=== PATIENT | male | born 1960 | race Caucasian/White ===

== ENCOUNTER 2022-08-09 10:45 | Outpatient (REF) | payer OTHER, SELFPAY ==
--- NOTE | ~2022-08-09 | XR_ITS ---
EXAMINATION: XR CHEST CLINICAL INFORMATION: Chronic cough COMPARISON: None available. TECHNIQUE: 2 views of the chest were obtained. FINDINGS: No significant abnormality is noted involving the heart, lungs, mediastinum, bony thorax or soft tissues. XR/XR chest 2V IMPRESSION: Unremarkable examination.
== END 2022-08-09 10:46 | disposition home or self-care (01) ==
LOC: HO.XRAY 10:45
PROVIDERS: PCP Physician Assistant; Visit Provider Physician Assistant
DX: R05.3 Chronic cough (principal)
CPT/HCPCS: 71046

== ENCOUNTER 2022-09-13 13:17 | Outpatient (REF) | payer OTHER, SELFPAY ==
--- NOTE | 2022-09-13 14:03 | PFT_ITS ---
Forced vital capacity 87%, FEV1 94%. FEV1 over FVC ratio is 81. FEF 25/75, 130%, and MVV 82%. Post bronchodilator therapy, there is no change. Total lung capacity 91% and residual volume 80%. Diffusion capacity 88%. CONCLUSION: Normal pulmonary function tests. There is no evidence of obstructive or restrictive pulmonary disorder. MD BRANDON Henriquez/RADHA / [id number]
== END 2022-09-13 13:18 | disposition home or self-care (01) ==
LOC: HO.RESP 13:17
PROVIDERS: Absent Provider Hospitalist; PCP Physician Assistant; Visit Provider Physician Assistant
DX: R05.3 Chronic cough (principal)
CPT/HCPCS: 94060; 94727; 94729

== ENCOUNTER → 2022-09-13 14:03 | Outpatient (BNV) | payer OTHER, SELFPAY | PROVIDERS: Absent Provider Hospitalist; PCP Physician Assistant; Visit Provider Internal Medicine | DX: R05.3 Chronic cough (principal) | CPT/HCPCS: 94060; 94727; 94729 ==

== ENCOUNTER 2023-02-14 14:54 | Outpatient (AMB) | payer OTHER, SELFPAY ==
--- NOTE | 2023-02-14 14:56 | MHC.OFFVIS ---
Intake Vital Signs 02/14/23 14:57 Height 6 ft Weight 246 lb 14.684 oz BMI 33.5 BP 136/82 Blood Pressure Location Rt brachial Position Sitting Pulse 90 Pulse Source Doppler Pulse Oximetry (%) 94 Oxygen Delivery Method Room Air Intake Visit Reasons: Cough Allergies No Known Allergies Allergy (Verified 02/14/23 14:59) HPI HPI Comments History of Present Illness Details The patient is here for pulmonary evaluation. The patient is a 62-year-old gentleman presenting with worsening cough. The patient has had a cough now for more than a year. At times the cough is productive in nature. With yellowish phlegm. Moderate severity. Has been clearing his throat a lot. Sometimes very forcefully. The patient also complains of nasal congestion. He did undergo pulmonary function studies which I personally reviewed without any significant obstructive nor restrictive ventilatory defects. He had a chest x-ray with out any disease. 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 He does have a radiation dosimeter, but is never been elevated. Otherwise he has been exposed to other pesticides and agricultural type of chemicals, But not directly. The patient has never had any allergy testing. He may have some mold in the home. They do run out the humidifier. In addition, the patient does have symptoms of daytime drowsiness. He does have an elevated Hurst score of 10/24. The patient was being evaluated for sleep apnea just prior to the pandemic and then after the pandemic He did not have any further follow-up. He never started CPAP. Based on his ongoing symptoms will go ahead and request a sleep study. When he did present to the office it was noted that his pulse ox was lower than normal approximately 92-93%. Therefore in the office we did taken for a brief walking oximetry and the patient did decrease down to 92%. No clear explanation for the underlying desaturation, but, could be related to untreated sleep apnea and the possibility of pulmonary vascular disease. I did review his chest x-ray indeed did have some pronunciation of the pulmonary vessels. Therefore, will go ahead and request a sleep study and he may ultimately need an echocardiogram. [facility] Medical History (Updated 02/15/23 @ 19:06 by Jewel Lou MD) Chronic allergic rhinitis Asthma Allergies Personal history of nicotine dependence Obese Erectile dysfunction Surgical History No pertinent past surgical history Family History (Updated 08/06/22 @ 13:29 by Alejandro Parks PA-C) Brother Pulmonary fibrosis Sister Pulmonary fibrosis Social History Housing: House Alcohol intake: current Patient Tobacco Use Status: Former Tobacco user Quit Date: 2013 Tobacco use type: Cigarette e-Cigarette/Vaping Use: Never Used Second Hand Smoke Exposure: No service: No Current occupational status: employed Current occupation: [employer] Cognitive needs: No Hearing needs: No Vision needs: Yes (glasses) Review of Systems Const Reports daytime sleepiness and Reports snoring ENT Reports nasal congestion Card Denies chest pain Resp Reports chest congestion, Reports cough and Reports snoring GI Denies abdominal pain Musc Reports no additional complaints Skin/Breast Denies rash Neuro Reports no additional complaints Abdulkadir/Lymph Denies lymphadenopathy Aller/Immun Reports seasonal rhinorrhea Physical Exam Vital Signs: Last Vital Signs Pulse 90 02/14/23 14:57 BP 136/82 02/14/23 14:57 Pulse Ox 94 02/14/23 14:57 Oxygen Delivery Method Room Air 02/14/23 14:57 BMI result Body Mass Index 33.5 Const General: comfortable HEENT Throat: Yes posterior oropharynx abnormal, Yes postnasal drainage and Yes cobblestoning Neck Neck: Yes supple Chest Chest palpation & inspection: normal inspection of the chest Resp Effort & Inspection: normal respiratory effort and prolonged expiratory phase Auscultation: wheezes Cardio Rate: regular rate Rhythm: regular rhythm Heart sounds: S1 normal heart sound present and S2 normal heart sound present GI Palpation (GI): Soft to palpation Skin General skin exam: no rashes or lesions noted Extrem General: Yes no clubbing, cyanosis or edema Assessment & Plan Assessment & Plan (1) Chronic cough: Code(s): R05.3 - Chronic cough (2) Allergies: Code(s): T78.40XA - Allergy, unspecified, initial encounter Qualifiers: Encounter type: initial encounter Qualified Code(s): T78.40XA - Allergy, unspecified, initial encounter (3) Chronic allergic rhinitis: Code(s): J30.9 - Allergic rhinitis, unspecified (4) Asthma: Code(s): J45.909 - Unspecified asthma, uncomplicated Qualifiers: Asthma severity: moderate Asthma persistence: persistent Asthma complication type: uncomplicated Qualified Code(s): J45.40 - Moderate persistent asthma, uncomplicated (5) SUNIL (obstructive sleep apnea): Code(s): G47.33 - Obstructive sleep apnea (adult) (pediatric) Plan start Doxycycline x 10 days start Symbicort start Fluticasone nasal spray sinus rinse at night bloodwork/allergy testing Home PSG F/U 2-3 months Orders: Orders Venous Blood Gas 02/14/23 J30.9 - Allergic rhinitis, unspecified, J45.909 - Unspecified asthma, uncomplicated, R05.3 - Chronic cough, T78.40XA - Allergy, unspecified, initial encounter Rast Allergen 02/14/23 J30.9 - Allergic rhinitis, unspecified, J45.909 - Unspecified asthma, uncomplicated, R05.3 - Chronic cough, T78.40XA - Allergy, unspecified, initial encounter Complete Blood Count Auto Diff 02/14/23 J30.9 - Allergic rhinitis, unspecified, J45.909 - Unspecified asthma, uncomplicated, R05.3 - Chronic cough, T78.40XA - Allergy, unspecified, initial encounter Basic Metabolic Panel 02/14/23 J30.9 - Allergic rhinitis, unspecified, J45.909 - Unspecified asthma, uncomplicated, R05.3 - Chronic cough, T78.40XA - Allergy, unspecified, initial encounter Hypersensitive Pneumonitis Prf 02/14/23 J30.9 - Allergic rhinitis, unspecified, J45.909 - Unspecified asthma, uncomplicated, R05.3 - Chronic cough, R91.8 - Other nonspecific abnormal finding of lung field, T78.40XA - Allergy, unspecified, initial encounter RT home sleep study 02/14/23 G47.33 - Obstructive sleep apnea (adult) (pediatric) Medications: New fluticasone propionate 50 mcg/actuation 2 sprays intranasal DAILY 30 days 15.8 mL 11RF J31.0 - Chronic rhinitis budesonide-formoterol 160-4.5 mcg/actuation (Symbicort) 2 puffs inhalation BID 30 days 10.2 grams 11RF J44.89 - Other specified chronic obstructive pulmonary disease doxycycline hyclate 100 mg PO BID 10 days 20 caps 0RF Coding Level of Care Code New Pt Level 4 (81559) Diagnoses Chronic cough R05.3 Allergy, initial encounter T78.40XA Encounter type: initial encounter Chronic allergic rhinitis J30.9 Moderate persistent asthma without complication J45.40 Asthma severity: moderate Asthma persistence: persistent Asthma complication type: uncomplicated SUNIL (obstructive sleep apnea) G47.33 Time Spent (min) 40
[2023-02-14 14:57] VITALS: BP 136/82; PULSE 90; O2SAT 94; BMI 33.5
== END 2023-02-14 15:38 | disposition home or self-care (01) ==
PROVIDERS: PCP Physician Assistant; Visit Provider Hospitalist
DX: R05.3 Chronic cough (principal); T78.40XA Allergy, unspecified, initial encounter; J30.9 Allergic rhinitis, unspecified; J45.40 Moderate persistent asthma, uncomplicated; G47.33 Obstructive sleep apnea (adult) (pediatric)
CPT/HCPCS: 99204

== ENCOUNTER 2023-02-14 14:54 | Outpatient (REF) | payer OTHER, SELFPAY ==
[2023-02-14 15:46] LABS: MANUAL DIFF FLAG NO
[2023-02-14 15:48] LABS: Basophils Absolute Auto 0.1 X10*3/uL (0.0-0.2); Basophils Percent Auto 0.8 % (0-2); Eosinophils Absolute Auto 0.4 X10*3/uL (0.0-0.4); Eosinophils Percent Auto 5.2 % (0-4); Hematocrit 46.7 % (42.0-52.0); Hemoglobin 16.1 g/dl (14.0-18.0); Imm Gran Abs Auto 0.02 X10*3/uL (0.00-0.03); Imm Gran Pct Auto 0.3 % (0.0-0.4); Lymphocytes Absolute Auto 2.4 X10*3/uL (1.2-4.9); Lymphocytes Percent Auto 31.3 % (20-40); Mean Corpuscular HGB Conc 34.5 g/dl (31.0-36.0); Mean Corpuscular Volume 87.1 fL (80.0-98.0); Mean Platelet Volume 8.9 fL (9.4-12.4); Monocytes Absolute Auto 0.6 X10*3/uL (0.1-1.2); Monocytes Percent Auto 7.3 % (2-11); Neutrophils Absolute Auto 4.2 x10*3/uL (2.0-8.3); Neutrophils Percent Auto 55.1 % (45-73); Platelet Count 252 X10*3/uL (160-400); Red Blood Count 5.36 X10*6/uL (4.60-5.80); Red Cell Distribution Width 12.7 % (11.0-16.0); White Blood Count 7.6 X10*3/uL (4.8-10.8)
[2023-02-14 15:57] LABS: VBG HCO3 21 mmol/L (22-26); VBG pCO2 28 mmHg; VBG pH 7.47 (7.32-7.43); VBG pO2 77 mmHg; Venous Blood Gas Refer to POC result
[2023-02-14 16:08] LABS: Anion Gap 13 (12-20); Blood Urea Nitrogen 22 mg/dL (9-16); Calcium 9.6 mg/dL (8.4-10.2); Carbon Dioxide 22 mmol/L (22-29); Chloride 114 mmol/L (96-108); Estimated Glomerular Filt Rate > 60; Glucose Random 108 mg/dL (60-115); Potassium 4.1 mmol/L (3.3-5.1); Sodium 145 mmol/L (135-145)
[2023-02-20 14:34] LABS: Asperg fumigatus Precip Abs NEGATIVE (NEGATIVE); Micropoly faeni Abs NEGATIVE (NEGATIVE); Pigeon serum Abs NEGATIVE (NEGATIVE); Saccharo pora viridis Abs NEGATIVE (NEGATIVE); Thermo candidus Abs NEGATIVE (NEGATIVE); Thermoa vulgaris #1 NEGATIVE (NEGATIVE)
== END 2023-02-14 14:55 | disposition home or self-care (01) ==
LOC: HO.LAB 14:54
PROVIDERS: PCP Physician Assistant; Visit Provider Hospitalist
DX: R05.3 Chronic cough (principal); T78.40XA Allergy, unspecified, initial encounter; J45.909 Unspecified asthma, uncomplicated; R91.8 Other nonspecific abnormal finding of lung field
CPT/HCPCS: 36415; 80048; 82803; 85025; 86331; 86606; 86609

== ENCOUNTER 2024-08-19 09:42 | Outpatient (AMB) | payer BC, SELFPAY ==
--- NOTE | 2024-08-19 09:46 | A.OFFPC_ITS ---
Vital Signs 08/19/24 09:52 Height 6 ft Weight 240 lb 6 oz BMI 32.6 BP 136/100 H Blood Pressure Location Lt brachial Position Sitting Pulse 62 Pulse Source Pulse Oximeter Temp 97.3 F Temp Source Temporal Artery Scan Pulse Oximetry (%) 97 Oxygen Delivery Method Room Air Intake Visit Reasons: pe Button Inspector Required: No Information Interpreted: non-clinical & clinical Window Cleaner: Not Required per policy Accompanied by: Spouse Allergies No Known Allergies Allergy (Verified 08/19/24 10:09) Medication List - Last Reconciled 08/19/24 by Alejandro Parks PA-C budesonide-formoterol 160-4.5 mcg/actuation (Symbicort) 2 puffs inhalation BID 30 days fluticasone propionate 50 mcg/actuation 2 sprays intranasal DAILY 30 days sildenafil (Viagra) 100 mg PO DAILY PRN 10 days Tobacco use date assessed: 08/19/24 Dental Screening Dental Screen Date: 08/19/24 Did you have a dental visit in the last 12 months?: Yes Did you have a dental problem in the last 6 months where you did not have access to dental care?: No Was dental information given to patient?: Patient has dentist HPI pe HPI Details Patient is a 63-year-old male here today for annual physical.?? Patient has a past medical history significant for former smoker, erectile dysfunction, obesity, elevated blood pressure readings. Asthma: And patient was followed by [facility] was started on Symbicort for his asthma type symptoms. He feels his cough and chest congestion has only been minimal. Though would like to have his maintenance inhaler on hand in case him exacerbation. Of note does have a family history of pulmonary fibrosis .. elevated blood pressure : Blood pressure today in office elevated. Patient would like to monitor blood pressure at home before starting blood pressure medication .. Class 1 Obesity: Has lost a few lb since last office visit. He still is concerned about his weight related issues particularly is knee pain. He is interested in starting a GLP 1 to help him lose weight. Of note he does report being evaluated for obstructive sleep apnea many years ago in told he had mild obstructive sleep apnea. ..Labs reviewed with patient and noted a slightly elevated fasting blood sugar at 102. Colonoscopy: Cologuard done 2021 normal his repeat 3 years, needs repeat Vaccines:UTD with FLu Vac and Tdap ,? shingles and COVID vaccines, need up to date PCV PFSH Medical History Chronic allergic rhinitis Asthma Allergies Personal history of nicotine dependence Obese Erectile dysfunction Surgical History No pertinent past surgical history Family History Brother Pulmonary fibrosis Sister Pulmonary fibrosis Social History (Updated 08/19/24 @ 10:20 by Alejandro Parks PA-C) Housing: House Alcohol intake: current Alcohol intake frequency: holidays/special occasions only Alcohol type: beer Patient Tobacco Use Status: Former Tobacco user Tobacco use type: Cigarette e-Cigarette/Vaping Use: Never Used Second Hand Smoke Exposure: No service: No Current occupational status: employed 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 1. Little interest or pleasure in doing things: not at all 2. Feeling down, depressed, or hopeless: not at all 3. Trouble falling or staying asleep, or sleeping too much: not at all 4. Feeling tired or having little energy: not at all 5. Poor appetite or overeating: not at all 6. Feeling bad about yourself - or that you are a failure or have let yourself or your family down: not at all 7. Trouble concentrating on things, such as reading the newspaper or watching television: not at all 8. Moving or speaking so slowly that other people could have noticed. Or the opposite - being so fidgety or restless that you have been moving around a lot more than usual: not at all 9. Thoughts that you would be better off or of hurting yourself in some way: not at all Total score: 0 Depression Screening Interpretation: Negative Depression Screening Done: Yes 58624 - PHQ-9 Billing: Yes Source: Developed by Drs. Yossi Anderson, Jessica Jade, Norman Moreno and colleagues, with an educational alhaji from [employer]. Thrive Questionnaire Date Thrive assessed: 08/19/24 I am a: Patient What is your living situation today?: I have a steady place to live Within the past 12 months, did the food you bought not last and you didn't have the money to get more?: Never true Within the past 12 months, did you worry whether your food would run out before you got money to buy more?: Never true Do you have trouble paying for medicines?: No Do you have trouble getting transportation to medical appointments?: No Do you have trouble paying your heating and electricity bill?: No Do you have trouble taking care of your child, family member or friend?: No Do you have trouble with day-to-day activities such as bathing, preparing meals, shopping, managing finances, etc.?: No Are you currently unemployed and looking for a job?: No Are you interested in more education?: No Please select the resources that you would like help with: None Currently or been in a relationship where the following occur: No concerns reported THRIVE Score: 0 AUDIT C Alcohol Use Questionnaire (AUDIT-C) 1. How often do you have a drink containing alcohol?: Never 3. How often do you have six or more drinks on one occasion?: Never Total Score: 0 LYNN-7 AMB Questionnaire LYNN-7 Date LYNN - 7 assessed: 08/19/24 Feeling nervous, anxious, or on edge: 0 = Not at all Not being able to stop or control worryin = Not at all Worrying too much about different things: 0 = Not at all Trouble relaxin = Not at all Being so restless that it is hard to sit still: 0 = Not at all Becoming easily annoyed or irritable: 0 = Not at all Feeling afraid as if something awful might happen: 0 = Not at all Total LYNN-7 score (0-4 normal; 5-9 mild; 10-14 moderate; 15-21 severe): 0 Source: Developed by Drs. Yossi Anderson, Jessica Jade, Norman Moreno and colleagues, with an educational alhaji from [employer] LYNN-7 Assessment Billing LYNN-7 Assessment Tool: LYNN-7 Assessment 23954 Review of Systems Const Denies body aches, Denies chills, Denies excessive sweating, Denies fatigue, Denies fever(s) and Denies headache(s) Eyes Denies blurry vision ENT Denies dysphagia, Denies vertigo, Denies dizziness, Denies headache(s), Denies hearing loss and Denies tinnitus Card Denies chest pain, Denies chest pain with activity, Denies syncope, Denies irregular heart rhythm and Denies dyspnea Resp Denies chest congestion, Denies cough, Denies hemoptysis, Denies dyspnea and Denies wheezing GI Denies abdominal pain, Denies melena, Denies hematochezia, Denies coffee ground emesis, Denies dysphagia, Denies diarrhea, Denies nausea and Denies vomiting Denies difficulty urinating, Denies dysuria, Denies urinary frequency, Denies urinary hesitancy and Denies urinary urgency Musc Denies arthralgias, Denies limited range of motion, Denies muscle cramps and Denies muscle weakness Skin/Breast Denies rash and Denies skin ulcer Neuro Denies Abnormal speech present, Denies confusion, Denies vertigo, Denies dizziness, Denies syncope, Denies headache(s), Denies memory loss and Denies seizure-like activity Psych Denies anxiety, Denies confusion, Denies depression, Denies memory loss, Denies panic attacks and Denies paranoia Endo Denies excessive sweating, Denies fatigue, Denies flushing, Denies polydipsia and Denies polyuria Aller/Immun Denies wheezing Physical exam (Primary Care) Vital Signs: Last Vital Signs Temp 97.3 F 08/19/24 09:52 Pulse 62 08/19/24 09:52 BP 136/100 H 08/19/24 09:52 Pulse Ox 97 08/19/24 09:52 Oxygen Delivery Method Room Air 08/19/24 09:52 BMI result Body Mass Index 32.6 Tobacco/Smoking Status: Tobacco use Status Tobacco use date assessed 08/19/24 08/19/24 09:47 Patient Tobacco Use Status Former Tobacco user 08/19/24 10:20 Tobacco use type Cigarette 08/19/24 10:20 e-Cigarette/Vaping Use Never Used 08/19/24 10:20 PHQ-9: PHQ-9 Score PHQ-9: Total score 0 08/19/24 10:11 Depression Screening Interpretation: Negative Thrive Assessment: Date of Thrive Assessment Date Thrive assessed 08/19/24 08/19/24 09:47 Currently or been in a relationship where the following occur: No concerns reported Const General: cooperative, comfortable, no acute distress, alert and awake; No confusion Orientation/consciousness: oriented to person, oriented to place, patient oriented x3 and No confusion HENMT Head: Yes normocephalic Ears: external ears normal and TM's normal bilaterally Face and sinus: No sinus tenderness Mouth: Normal oral and palatal mucosa present and tongue normal Teeth and gingiva: dentition normal and gingiva normal Throat: Yes posterior oropharynx normal, Yes tonsils normal and Yes uvula midline Eyes Conjunctivae: conjunctivae normal Sclerae: sclerae normal Pupils: Equal, round and reactive pupils present EOM: EOMs intact bilaterally Direct Ophthalmoscopy: No no photophobia Neck Neck: Yes no lymphadenopathy, No tender and Yes no JVD Thyroid: Thyroid normal Carotids: no bruits Chest Chest palpation & inspection: no tenderness Resp Effort & Inspection: normal respiratory effort, no audible wheezes, not labored and no stridor Auscultation: no crackles, no rales, no rhonchi and no wheezes Cardio Jugular venous distension: no JVD Rate: regular rate, not bradycardic and not tachycardic Rhythm: regular rhythm Bruits: no carotid bruits Peripheral pulses: Peripheral pulses 2+ throughout GI Inspection: Yes normal to inspection, No abdominal wall ecchymosis and No visible herniation Palpation (GI): Soft to palpation, nontender, no guarding, not rigid and No hepatosplenomegaly present Auscultation: normoactive bowel sounds General: Yes no CVA tenderness Back/Spine/Pelvis Back: no CVA tenderness and No back tenderness Cervical Spine: cervical ROM normal Thoracic/Lumbar Spine: thoracic and lumbar spine normal to inspection, straight leg raise negative bilaterally, No thoraco-lumbar ROM limited and No lumbar spinal tenderness Skin Lesions: no lesions Rashes: no rashes Wounds: no wounds Neuro General: oriented to person, oriented to place, patient oriented x3, CN's II-XI intact bilaterally and No confusion Cranial nerves: Yes Equal, round and reactive pupils present and Yes Normal accommodation reflex present Cognition (Neuro): normal cognition Speech: No Abnormal speech present Gait exam (Neuro): Normal gait present Motor exam (neuro): 5/5 motor strength present throughout Extrem Right upper extremity: full ROM; no cyanosis Left upper extremity: full ROM; no cyanosis Right lower extremity: no edema Left lower extremity: no edema Psych Appearance: grossly normal Mental Status: mental status grossly normal Affect: normal affect Attitude: cooperative Thought process: Normal thought process present Coding Level of Care Code Est Pt Prev Care 40-64y(65126) Diagnoses Annual physical exam Z00.00 Moderate persistent asthma without complication J45.40 Asthma complication type: uncomplicated Asthma persistence: persistent Asthma severity: moderate Impaired glucose metabolism R73.09 Class 1 obesity E66.811 Additional Codes LYNN-7 Assessment Billing - LYNN-7 Assessment Tool: LYNN-7 Assessment 82629 ([id number]) PHQ-9 - 82813 - PHQ-9 Billing: Yes ([id number]) Assessment & Plan Assessment & Plan (1) Annual physical exam: Code(s): Z00.00 - Encounter for general adult medical examination without abnormal findings Category: Medical Plan: As per HPI (2) Asthma: Code(s): J45.909 - Unspecified asthma, uncomplicated Category: Medical Qualifiers: Asthma complication type: uncomplicated Asthma persistence: persistent Asthma severity: moderate Qualified Code(s): J45.40 - Moderate persistent asthma, uncomplicated Plan: He denies any nighttime awakenings with asthma symptoms or recent asthma exacerbations. From time to time does get a mild congestive cough though this is few and far between.. 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 Does have a family his tory of pulmonary fibrosis. (3) Impaired glucose metabolism: Code(s): R73.09 - Other abnormal glucose Category: Medical Plan: Patient has a history of slight elevation in his fasting blood sugar. Will check his fasting blood sugar again along with A1c to evaluate for diabetes. (4) Class 1 obesity: Code(s): E66.811 - Obesity, class 1 Category: Medical Plan: Patient does understand his BMI is over 30 will work on being more physically active and adapting to better eating habits to reduce his weight. He is interested in a GLP 1 to help him reduce his weight. Of note also does have mild obstructive sleep apnea that was diagnosed several years ago which may benefit from a GLP 1 as well. Will have patient back in 8 weeks to evaluate his weight to see if he is getting benefit from the GLP 1. Orders: Orders 2 Complete Blood Count no Diff Today R73.09 - Other abnormal glucose Hemoglobin A1c Today R73.09 - Other abnormal glucose Lipid Panel Today R73.09 - Other abnormal glucose Comprehensive [place]. Panel Fast Today R73.09 - Other abnormal glucose Prostate Specific Antigen Scr Today N52.9 - Male erectile dysfunction, unspecified, Z12.5 - Encounter for screening for malignant neoplasm of prostate Medications: New tirzepatide (weight loss) (Zepbound) for 4 weeks 2.5 mg (0.5 mL) subcut QWEEK 2 mL 0RF 4 weeks E66.811 - Obesity, class 1, G47.33 - Obstructive sleep apnea (adult) (pediatric) Refilled sildenafil (Viagra) administer 30 minutes to 4 hours before activity 100 mg PO DAILY PRN 10 tabs 1RF sexual activity 10 days N52.9 - Male erectile dysfunction, unspecified budesonide-formoterol 160-4.5 mcg/actuation (Symbicort) 2 puffs inhalation BID 10.2 grams 11RF 30 days J44.89 - Other specified chronic obstructive pulmonary disease fluticasone propionate 50 mcg/actuation 2 sprays intranasal DAILY 15.8 mL 1RF 30 days J31.0 - Chronic rhinitis
[2024-08-19 09:52] VITALS: BP 136/100; PULSE 62; TEMP 36.3; O2SAT 97; BMI 32.6
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
== END 2024-08-19 10:40 | disposition home or self-care (01) ==
LOC: HO.HMCH 09:43
PROVIDERS: PCP Physician Assistant; Visit Provider Physician Assistant
DX: Z00.00 Encounter for general adult medical examination without abnormal findings (principal); J45.40 Moderate persistent asthma, uncomplicated; E66.811 Obesity, class 1; Z68.32 Body mass index [BMI] 32.0-32.9, adult; R73.09 Other abnormal glucose

== ENCOUNTER → 2024-08-19 09:42 | Outpatient (BNVA) | payer BC, SELFPAY | PROVIDERS: PCP Physician Assistant; Visit Provider Physician Assistant | DX: Z00.00 Encounter for general adult medical examination without abnormal findings (principal); N52.9 Male erectile dysfunction, unspecified; R03.0 Elevated blood-pressure reading, without diagnosis of hypertension; E66.811 Obesity, class 1; J45.40 Moderate persistent asthma, uncomplicated; R73.09 Other abnormal glucose; G47.33 Obstructive sleep apnea (adult) (pediatric); Z68.32 Body mass index [BMI] 32.0-32.9, adult; Z79.899 Other long term (current) drug therapy | CPT/HCPCS: 96127 ==

== ENCOUNTER 2024-11-16 13:00 | Outpatient (AMB) | payer BC, SELFPAY ==
--- NOTE | 2024-11-16 13:03 | A.OFFVIS_ITS ---
Vital Signs 11/16/24 13:04 Height 6 ft Weight 235 lb 14.314 oz BMI 32.0 BP 118/76 Blood Pressure Location Lt brachial Position Sitting Pulse 85 Pulse Source Pulse Oximeter Pulse Oximetry (%) 95 Oxygen Delivery Method Room Air Intake Visit Reasons: Asthma Temper Mill Roller Required: No Accompanied by: Spouse Allergies No Known Allergies Allergy (Verified 11/16/24 13:07) HPI Comments Details: The patient is a 64-year-old gentleman presenting with worsening cough. The patient has had a cough now for more than a year. At times the cough is productive in nature. With yellowish phlegm. Moderate severity. Has been clearing his throat a lot. Sometimes very forcefully. The patient also complains of nasal congestion. He did undergo pulmonary function studies which I personally reviewed without any significant obstructive nor restrictive ventilatory defects. He had a chest x-ray with out any disease. 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 He does have a radiation dosimeter, but is never been elevated. Otherwise he has been exposed to other pesticides and agricultural type of chemicals, But not directly. The patient has never had any allergy testing. He may have some mold in the home. They do run out the humidifier. In addition, the patient does have symptoms of daytime drowsiness. He does have an elevated Chauncey score of 10/24. The patient was being evaluated for sleep apnea just prior to the pandemic and then after the p andemic He did not have any further follow-up. He never started CPAP. Based on his ongoing symptoms will go ahead and request a sleep study. When he did present to the office it was noted that his pulse ox was lower than normal approximately 92-93%. Therefore in the office we did taken for a brief walking oximetry and the patient did decrease down to 92%. No clear explanation for the underlying desaturation, but, could be related to untreated sleep apnea and the possibility of pulmonary vascular disease. I did review his chest x-ray indeed did have some pronunciation of the pulmonary vessels. Therefore, will go ahead and request a sleep study and he may ultimately need an echocardiogram. 11/16/2024 the patient is here for pulmonary follow-up visit. The patient still complains of significant productive cough with yellowish phlegm. More on a regular basis. Pretty regular throughout the day. The family becomes concerned because of the significant coughing and sections. He does have a nasal drip. He does get a worsening postnasal drip when he is lays flat. He has not begun to taking medications. He is willing to try Neti bottle at nighttime and also will use the fluticasone in the morning. The patient also has evidence of chronic bronchitis. He did have a chest x-ray back in 2022 with some congestion of the airways and vessels. Will go ahead and repeat the x-ray at this time. Also to note as a family history of idiopathic pulmonary fibrosis. Both of his siblings ended up with fibrosis of the lungs. Therefore will have him get an x- ray and if his symptoms continue to persist or if the x-ray is abnormal then a CT scan of the chest will be warranted. He was a smoker. He quit around 10 years ago. The patient will start azithromycin 3 times a week for the chronic bronchitis. Will consider Daliresp as an option. Will have him get the chest x-ray and will follow-up. 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 Cognitive needs: No Hearing needs: No Vision needs: Yes (glasses) Review of Systems Const Reports daytime sleepiness and Reports snoring ENT Reports nasal congestion Card Denies chest pain Resp Reports chest congestion, Reports cough and Reports snoring GI Denies abdominal pain Musc Reports no additional complaints Skin/Breast Denies rash Neuro Reports no additional complaints Abdulkadir/Lymph Denies lymphadenopathy Aller/Immun Reports seasonal rhinorrhea Physical Exam Vital Signs: Last Vital Signs Pulse 85 11/16/24 13:04 BP 118/76 11/16/24 13:04 Pulse Ox 95 11/16/24 13:04 Oxygen Delivery Method Room Air 11/16/24 13:04 BMI result Body Mass Index 32.0 Const General: comfortable HEENT General nose exam: Abnormal mucous membranes and turbinates present boggy Throat: Yes posterior oropharynx abnormal, Yes postnasal drainage and Yes cobblestoning Neck Neck: Yes supple Chest Chest palpation & inspection: normal inspection of the chest Resp Effort & Inspection: normal respiratory effort and Actively coughing Quality: productive Auscultation: wheezes Cardio Rate: regular rate Rhythm: regular rhythm Heart sounds: S1 normal heart sound present and S2 normal heart sound present GI Palpation (GI): Soft to palpation Skin General skin exam: no rashes or lesions noted Extrem General: Yes no clubbing, cyanosis or edema Results Reviewed Results Reviewed: personally reviewed Bloodwork and CXR with pulmonary vascular engorgement Assessment & Plan Assessment & Plan (1) Chronic cough: Code(s): R05.3 - Chronic cough Category: Medical (2) Allergies: Code(s): T78.40XA - Allergy, unspecified, initial encounter Category: Medical Qualifiers: Encounter type: initial encounter Qualified Code(s): T78.40XA - Allergy, unspecified, initial encounter (3) Chronic allergic rhinitis: Code(s): J30.9 - Allergic rhinitis, unspecified Category: Medical (4) Asthma: Code(s): J45.909 - Unspecified asthma, uncomplicated Category: Medical Qualifiers: Asthma complication type: uncomplicated Asthma persistence: persistent Asthma severity: moderate Qualified Code(s): J45.40 - Moderate persistent asthma, uncomplicated (5) SUNIL (obstructive sleep apnea): Code(s): G47.33 - Obstructive sleep apnea (adult) (pediatric) Category: Medical Plan startAzithromycin MWF stopped Symbicort start Trelegy 200 daily start Azithrmomycin MWF start Fluticasone nasal spray sinus rinse at night (neti bottle) Sputum cx CXR F/U 2-3 months Orders: Orders XR chest 2V Today R05.3 - Chronic cough Sputum Cult + Gram stain Today R91.1 - Solitary pulmonary nodule Medications: New fluticasone propionate 50 mcg/actuation 2 sprays intranasal DAILY 15.8 mL 11RF 30 days J31.0 - Chronic rhinitis noxlswbkkrl-lqvjdxctm-qkofbggq 200-62.5-25 mcg (Trelegy Ellipta) 1 inh inhalation DAILY 60 ea 12RF 30 days azithromycin Take 1 tablet on Friday/Friday/Friday 250 mg PO 3XW 12 tabs 0RF 28 days K21.9 - Gastro-esophageal reflux disease without esophagitis Coding Level of Care Code Est Pt Level 5 (46163) Diagnoses Chronic cough R05.3 Allergy, initial encounter T78.40XA Encounter type: initial encounter Chronic allergic rhinitis J30.9 Moderate persistent asthma without complication J45.40 Asthma complication type: uncomplicated Asthma persistence: persistent Asthma severity: moderate SUNIL (obstructive sleep apnea) G47.33 Time Spent (min) 45
[2024-11-16 13:04] VITALS: BP 118/76; PULSE 85; O2SAT 95; BMI 32.0
--- OUTSIDE RECORDS SUMMARY | 2024-11-16 15:16 | XMS_ITS | Clinical Summary ---
Author Organization [facility] [place] [address] Care Team Providers Care Engraver [employer]als Name Role Phone None Primary Care Provider Unavailabl e Social History Tobacco Use Types Packs/Day Years Used Date Smoking Tobacco: Never Assessed Sex and Gender Information Value Date Recorded Sex Assigned at Not on file Legal Sex Male 7:30 AM EDT Gender Identity Not on file Sexual Orientation Not on file Plan of Treatment Health Maintenance Due Date Last Done Comments CT Colonography 1960 Colonoscopy 1960 Colorectal Cancer Screening 1960 FIT DNA 1960 FIT 1960 Sigmoidoscopy (10 year) with FIT yearly 1960 Sigmoidoscopy 1960 HIV screen 1978 Hepatitis C Screening 1978 Lipid Screening 1978 Tetanus/Diphtheria/Pertussis Vaccines (1 - Tdap) 09/24 Pneumoccocal Vaccine: 50+ (1 of 1 - PCV) 2010 Zoster vaccine (1 of 2) 2010 Advance Directive 09/25/2015 Covid-19 Vaccine (1 - season) 2024 Influenza (Flu) vaccine (1 o f 1 - Influenza standard series) 11/08/2024 Care Teams Engraver [employer] Relationship Specialty Start Date End Date None None PCP - General 10/22/17
--- OUTSIDE RECORDS SUMMARY | 2024-11-16 15:16 | XMS_ITS | Clinical Summary ---
Author Organization [facility] Address [address] [address] Phone Care Team Providers Care Standard Machine Stitcher Name Role Phone Alejandro Parks Primary Care Provider + Allergies No known active allergies Medications No known medications Encounters Date Type Department Care Team Description 2024 10:35 AM EDT - 2024 11:59 PM EDT Hospital Encounter [facility] [address] [place] [address] [place] [address] Alejandro Parks PA Discharge Disposition: Home or Self Care from Last 3 Months Social History Tobacco Use Types Packs/Day Years Used Date Smoking Tobacco: Former Cigarettes 1 35 1 981 - 2015 Smokeless Tobacco: Never Alcohol Use Standard Drinks/Week Comments Yes 0 (1 standard drink = 0.6 oz pur e alcohol) rare Education Answer Date Recorded Are you interested in more education? Not on musa e 07/05/2022 Are you concerned about learning? Not on file 07/05/2022 No 07/05/2022 No 07/05/2022 Digital Access Answer Date Recorded No 08/03/2022 No 08/03/2022 No 08/03/2022 Reliable internet access at home? Not on file 08/03/2022 Device with a working camera? Not on file Sex and Gender Information Value Date Recorded Sex Assigned at Not on file Legal Sex Male 9:47 PM EDT Gender Identity Not on file Sexual Orientation Not on file Last Filed Vital Signs Vital Sign Reading Time Taken Comments Blood Pressure 120/80 11/10/2020 2:57 PM EDT Pulse 99 11/10/2020 2:57 PM EDT Temperature - - Respiratory Rate - - Oxygen Saturation 96% 11/10/2020 2:57 PM EDT Inhaled Oxygen Concentration - - Weight 111.1 kg (245 lb) 11/10/2020 2:57 PM EDT Height 182.9 cm (6') 11/10/2020 2:57 PM EDT Body Mass Index 33.23 11/10/2020 2:57 PM EDT Plan of Treatment Health Maintenance Due Date Last Done Comments DEPRESSION SCREENING 1972 SMOKING Hx and SMOKELESS TOBACCO SCREENING 1973 HEPATITIS C SCREENING 1978 HIV ONE-TIME SCREENING (18-6 5 YEARS) 1978 COLOGUARD 2005 COLONOSCOPY 2005 COLORECTAL CANCER SCREENING 2005 FIT TEST 2005 FOBT 2005 SIGMOIDOSCOPY 2005 VIRTUAL COLONOSCOPY 2005 ZOSTER VACCINES (1 of 2) 2010 PNEUMOCOCCAL VACCINES (50+ years) (2 of 2 - PCV) 04/09/2020 04/09/2019 INFLUENZA VACCINE (#1) 2024 , 01/04/2019, 11/23/2017 COVID-19 VACCINE (2 - 2024-2 6 season) 2024 03/05/2021 Adult Td,Tdap Booster 04/09/2029 04/09/2019 LIPID PANEL 2029 2024, 08/09/2022 RSV VACCINE (1 - 1-dose 75+ series) 09/25/2035 HEPATITIS A VACCINES Aged Out No long er eligible based on patient's age to complete this topic HIB VACCINES Aged Out No longer eligi ble based on patient's age to complete this topic MENINGOCOCCAL VACCINES (ACWY) Aged Out No longer eligible based on patient's age to complete this topic MENINGOCOCCAL VACCINES (B) Aged Out N o longer eligible based on patient's age to complete this topic Medical Devices Not on file Procedures Procedure Name Priority Date/Time Associated Diagnosis Comments CBC Routine 2024 10:41 AM EDT Elevated glucose HEMOGLOBIN A1C Routine 2024 10:41 AM EDT Elevated glucose LIPID PANEL Routine 2024 10:41 AM EDT Elevated glucose COMPREHENSIVE METABOLIC PANEL Routine 2024 10:41 AM EDT Elevated glucose PSA (SCREENING) Routine 2024 10:41 AM EDT Elevated glucose from Last 3 Months Results * (ABNORMAL) Comprehensive metabolic panel (2024 10:41 AM EDT) SODIUM 137 133 - 146 mmol/L [facility] POTASSIUM 4.0 3.3 - 5.1 mmol/L [facility] CHLORIDE 106 96 - 108 mmol/L [facility] CO2 19(L) 21 - 35 mmol/L [facility] BUN 19 6 - 19 mg/dL [facility] CREATININE 1.00 0.5 - 1.5 mg/dL [facility] GLUCOSE 98 70 - 99 mg/dL [facility] ALBUMIN 4.5 3.9 - 4.8 g/dL [facility] TOTAL PROTEIN 7.3 6.5 - 8.0 g/dL [facility] CALCIUM 9.5 8.4 - 10.3 mg/dL [facility] ALKALINE PHOSPHATASE 65 39 - 117 U/L [facility] TOTAL BILIRUBIN 0.6 0.0 - 1.2 mg/dL [facility] AST 25 0 - 37 U/L [facility] ALT 20 0 - 40 U/L [facility] GLOBULIN 2.8 1 - 4.8 g/dL [facility] EGFR 84 >59 mL/min/1.7 3m2 [facility] Comment:Estimated glomerular filtration rate calculated using the CKD-EPI refit equation. ANION GAP 16 10 - 20 mmol/L [facility] Blood 2024 10:4 1 AM EDT 2024 10:46 AM EDT us Alejandro HERNANDEZ LAB BLOOD ORDERABLES Fin al Result [facility] [address] [place] [address] * CBC (2024 10:41 AM EDT) Pathologist [facility] WBC 6.19 4.00 - 11.00 K/uL [facility] RBC 5.68 4.50 - 5.90 M/uL [facility] HGB 17.1 13.5 - 17.5 g/dL [facility] HCT 50.6 41.0 - 53.0 % [facility] PLT 264 150 - 450 K/uL [facility] MCV 89.1 80.0 - 100.0 fL [facility] MCH 30.1 27.0 - 31.0 pg [facility] MCHC 33.8 32.0 - 36.0 g/dL [facility] RDW 13.0 11.5 - 14.5 % [facility] MPV 9.1 8.4 - 12.0 fL [facility] NRBC 0.00 0.00 /100 WBCs [facility] ABSOLUTE NRBC 0.00 0.00 K/uL [facility] Blood 2024 10:4 1 AM EDT 2024 10:46 AM EDT Alejandro HERNANDEZ LAB BLOOD ORDERABLES Fin al Result [address] [id number] * PSA (screening) (2024 10:41 AM EDT) [facility] PSA 1.67 0 - 4.00 ng/mL [facility] Comment: Test Methodology Candy [id number] Patient results determined by assays using different manufacturers or methods may not be comparable. Blood 2024 10:4 1 AM EDT 2024 10:46 AM EDT Alejandro HERNANDEZ LAB BLOOD ORDERABLES Fin al Result [address] [address] * Hemoglobin A1c (2024 10:41 AM EDT) HEMOGLOBIN A1C 5.6 4.3 - 5.8 % [facility] Blood 2024 10:4 1 AM EDT 2024 10:47 AM EDT Alejandro HERNANDEZ LAB BLOOD ORDERABLES Fin al Result Performing Organization Address City/[facility]/ZIP Co de Phone Number [address] [address] * Lipid panel (2024 10:41 AM EDT) HDL 45 mg/dL [facility] Comment: Interpretation <40 mg/dL: Low HDL cholesterol (major risk factor for CHD) Greater than or equal to 60 mg/dL: High HDL cholesterol ( negative risk factor for CHD) HDL - cholesterol is affected by a number of factors, e.g. smoking, excerise, hormones, sex and age. CHOLESTEROL 185 0 - 240 mg/dL [facility] TRIGLYCERIDES 77 30 - 160 mg/dL [facility] LDL 125 50 - 129 mg/dL [facility] Comment: LDL levels in terms of risk for coronary heart disease: <100 mg/dL: Optimal 100-129 mg/dL: Near or above optimal 130-159 mg/dL: Borderline high 160-189 mg/dL: High >190 mg/dL: Very High CARDIAC RISK RATIO 4.1 3.4 - 5.0 C [facility] Blood 2024 10:4 1 AM EDT 2024 10:46 AM EDT Alejandro HERNANDEZ LAB BLOOD ORDERABLES Fin al Result [address] [address] from Last [address] [place] [address] OUT OF STATE PPO BLUE CROSS OUT OF STATE PPO BLUE CROSS OUT OF [facility] PPO BLUE CROSS OUT OF STATE PPO Care Teams Standard Machine Stitcher Relationship Specialty Start Date End Date Alejandro Parks PA [facility] [place] [address] PCP - General Physician Adjunct Latin Professor 07/26/22 Additional Source Comments The information contained in this document represents components of the legal health record. It is not the complete legal health record.[facility]
== END 2024-11-16 13:42 | disposition home or self-care (01) ==
LOC: HO.HPS 13:00
PROVIDERS: PCP Physician Assistant; Visit Provider Hospitalist
DX: R05.3 Chronic cough (principal); T78.40XA Allergy, unspecified, initial encounter; J30.9 Allergic rhinitis, unspecified; J45.40 Moderate persistent asthma, uncomplicated; G47.33 Obstructive sleep apnea (adult) (pediatric)
CPT/HCPCS: 99215

== ENCOUNTER 2024-11-16 13:00 | Outpatient (REF) | payer BC, SELFPAY ==
--- NOTE | ~2024-11-16 | XR_ITS ---
EXAMINATION: XR CHEST CLINICAL INFORMATION: R05.3 - Chronic cough COMPARISON: August 09, 2022 TECHNIQUE: PA and lateral views FINDINGS: Poor inspiration. No consolidation, pleural effusion or pneumothorax. Cardiomediastinal silhouette size is normal. Multilevel thoracolumbar spondylosis. S-shaped curvature of the thoracolumbar spine. XR/XR chest 2V IMPRESSION: No acute airspace disease. Scoliosis and multilevel spondylosis. Electronically signed by: Johny Bangura MD 11/16/2024 02:19 PM EDT
== END 2024-11-16 13:01 | disposition home or self-care (01) ==
LOC: HO.XRAY 13:00
PROVIDERS: PCP Physician Assistant; Visit Provider Hospitalist
DX: J45.40 Moderate persistent asthma, uncomplicated (principal); J30.9 Allergic rhinitis, unspecified; G47.33 Obstructive sleep apnea (adult) (pediatric); R91.1 Solitary pulmonary nodule; Z87.891 Personal history of nicotine dependence
CPT/HCPCS: 71046; 87070; 87205

== ENCOUNTER → 2024-11-16 13:53 | Outpatient (BNV) | payer BC, SELFPAY | PROVIDERS: PCP Physician Assistant; Visit Provider Radiology Diagnostic Radiology | DX: R05.3 Chronic cough (principal) | CPT/HCPCS: 71046 ==

== ENCOUNTER 2025-02-11 13:51 | Outpatient (AMB) | payer BC, SELFPAY ==
[2025-02-11 14:04] VITALS: BP 146/74; PULSE 85; O2SAT 96; BMI 33.8
--- NOTE | 2025-02-11 14:04 | A.OFFVIS_ITS ---
Vital Signs 02/11/25 14:04 Height 6 ft Weight 249 lb 1.957 oz BMI 33.8 BP 146/74 H Blood Pressure Location Lt brachial Position Sitting Pulse 85 Pulse Source Pulse Oximeter Pulse Oximetry (%) 96 Oxygen Delivery Method Room Air Intake Visit Reasons: Asthma Pulp Refiner Operator Required: No Accompanied by: Spouse Allergies No Known Allergies Allergy (Verified 02/11/25 14:07) HPI Comments Details: The patient is a 64-year-old gentleman presenting with worsening cough. The patient has had a cough now for more than a year. At times the cough is productive in nature. With yellowish phlegm. Moderate severity. Has been clearing his throat a lot. Sometimes very forcefully. The patient also complains of nasal congestion. He did undergo pulmonary function studies which I personally reviewed without any significant obstructive nor restrictive ventilatory defects. He had a chest x-ray with out any disease. 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 He does have a radiation dosimeter, but is never been elevated. Otherwise he has been exposed to other pesticides and agricultural type of chemicals, But not directly. The patient has never had any allergy testing. He may have some mold in the home. They do run out the humidifier. In addition, the patient does have symptoms of daytime drowsiness. He does have an elevated [place] score of 10/24. The patient was being evaluated for sleep apnea just prior to the pandemic and then after the pandemic He did not have any further follow-up. He never started CPAP. Based on his ongoing symptoms will go ahead and request a sleep study. When he did present to the office it was noted that his pulse ox was lower than normal approximately 92-93%. Therefore in the office we did taken for a brief walking oximetry and the patient did decrease down to 92%. No clear explanation for the underlying desaturation, but, could be related to untreated sleep apnea and the possibility of pulmonary vascular disease. I did review his chest x-ray indeed did have some pronunciation of the pulmonary vessels. Therefore, will go ahead and request a sleep study and he may ultimately need an echocardiogram. 11/16/2024 the patient is here for pulmonary follow-up visit. The patient still complains of significant productive cough with yellowish phlegm. More on a regular basis. Pretty regular throughout the day. The family becomes concerned because of the significant coughing and sections. He does have a nasal drip. He does get a worsening postnasal drip when he is lays flat. He has not begun to taking medications. He is willing to try Neti bottle at nighttime and also will use the fluticasone in the morning. The patient also has evidence of chronic bronchitis. He did have a chest x-ray back in 2022 with some congestion of the airways and vessels. Will go ahead and repeat the x-ray at this time. Also to note as a family history of idiopathic pulmonary fibrosis. Both of his siblings ended up with fibrosis of the lungs. Therefore will have him get an x- ray and if his symptoms continue to persist or if the x-ray is abnormal then a CT scan of the chest will be warranted. He was a smoker. He quit around 10 years ago. The patient will start azithromycin 3 times a week for the chronic bronchitis. Will consider Daliresp as an option. Will have him get the chest x-ray and will follow-up. 02/11/2025 the patient is here for pulmonary follow-up visit. The patient still feels like he is having chest congestion shortness of breath. He did try the Trelegy although he did not see any significant improvement. He also took the azithromycin 3 times a week and he felt some improvement with that. The patient did undergo a chest x-ray which I personally reviewed we did. He seems like he has some changes at the bases. Some of the areas appear to show some tram tracking and some peribronchial cuffing suggesting bronchiectasis. Although could have some reticular changes also suggesting some interstitial lung disease. Unfortunately his sister of interstitial lung disease and pulmonary fibrosis. Therefore will go ahead and request a CT scan of the chest in view of the abnormal chest x-ray in the ongoing symptoms. The patient also should get blood work. Will wait for the results. We also did try to get a sputum but it was contaminated. Will try to get another sputum if possible if not bronchoscopy will provide better deep cultures. In the meantime will request a Acapella valve for him to provide CPT and mucus clearance. Patient will return in 3-4 months if he has any issues prior to this she can always call for further recommendations. [facility] Medical History Chronic allergic rhinitis Asthma Allergies Personal history of nicotine dependence Obese Erectile dysfunction Surgical History No pertinent past surgical history Family History Brother Pulmonary fibrosis Sister Pulmonary fibrosis Social History Housing: House Alcohol intake: current Alcohol intake frequency: holidays/special occasions only Alcohol type: beer Patient Tobacco Use Status: Former Tobacco user Tobacco use type: Cigarette e-Cigarette/Vaping Use: Never Used Second Hand Smoke Exposure: No service: No Current occupational status: employed 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 Cognitive needs: No Hearing needs: No Vision needs: Yes (glasses) Review of Systems Const Reports daytime sleepiness and Reports snoring ENT Reports nasal congestion Card Denies chest pain Resp Reports chest congestion, Reports cough and Reports snoring GI Denies abdominal pain Musc Reports no additional complaints Skin/Breast Denies rash Neuro Reports no additional complaints Abdulkadir/Lymph Denies lymphadenopathy Aller/Immun Reports seasonal rhinorrhea Physical Exam Vital Signs: Last Vital Signs Pulse 85 02/11/25 14:04 BP 146/74 H 02/11/25 14:04 Pulse Ox 96 02/11/25 14:04 Oxygen Delivery Method Room Air 02/11/25 14:04 BMI result Body Mass Index 33.8 Const General: comfortable HEENT General nose exam: Abnormal mucous membranes and turbinates present boggy Throat: Yes posterior oropharynx abnormal, Yes postnasal drainage and Yes cobblestoning Neck Neck: Yes supple Chest Chest palpation & inspection: normal inspection of the chest Resp Effort & Inspection: normal respiratory effort Auscultation: no wheezes and diminished lung sounds Cardio Rate: regular rate Rhythm: regular rhythm Heart sounds: S1 normal heart sound present and S2 normal heart sound present GI Palpation (GI): Soft to palpation Skin General skin exam: no rashes or lesions noted Extrem General: Yes no clubbing, cyanosis or edema Assessment & Plan Assessment & Plan (1) Chronic cough: Code(s): R05.3 - Chronic cough Category: Medical (2) Allergies: Code(s): T78.40XA - Allergy, unspecified, initial encounter Category: Medical Qualifiers: Encounter type: initial encounter Qualified Code(s): T78.40XA - Allergy, unspecified, initial encounter (3) Chronic allergic rhinitis: Code(s): J30.9 - Allergic rhinitis, unspecified Category: Medical (4) Asthma: Code(s): J45.909 - Unspecified asthma, uncomplicated Category: Medical Qualifiers: Asthma complication type: uncomplicated Asthma persistence: persistent Asthma severity: moderate Qualified Code(s): J45.40 - Moderate persistent asthma, uncomplicated (5) SUNIL (obstructive sleep apnea): Code(s): G47.33 - Obstructive sleep apnea (adult) (pediatric) Category: Medical (6) Standard chest x-ray abnormal: Code(s): R93.89 - Abnormal findings on diagnostic imaging of other specified body structures Category: Medical Plan stop Azithromycin MWF continue Symbicort stop Trelegy 200 daily continue Fluticasone nasal spray sinus rinse at night (neti bottle) Sputum cx, consider bronchoscopy CXR abnormal likely ILD/bronchiectasis. +FHx of ILD/pulmonary fibrosis CT chest will order bloodwork after CT chest CPT with acapella valve F/U 2-3 months Orders: Orders CT chest wo IV con Today J45.40 - Moderate persistent asthma, uncomplicated, R05.3 - Chronic cough, R93.89 - Abnormal findings on diagnostic imaging of other specified body structures Coding Level of Care Code Complex visit Add On G2211 Diagnoses Chronic cough R05.3 Allergy, initial encounter T78.40XA Encounter type: initial encounter Chronic allergic rhinitis J30.9 Moderate persistent asthma without complication J45.40 Asthma complication type: uncomplicated Asthma persistence: persistent Asthma severity: moderate SUNIL (obstructive sleep apnea) G47.33 Standard chest x-ray abnormal R93.89 Time Spent (min) 18
--- OUTSIDE RECORDS SUMMARY | 2025-02-11 18:05 | XMS_ITS | Clinical Summary ---
Author Organization [facility] Address [address] [place] [id number] Phone Care Team Providers Care Children'S Program Coordinator Name Role Phone Alejandro Parks Primary Care Provider + Allergies No known active allergies Medications No known medications Social History Tobacco Use Types Packs/Day Years Used Date Smoking Tobacco: Former Cigarettes 1 35 1 981 - 2016 Smokeless Tobacco: Never Alcohol Use Standard Drinks/Week [...] Procedure Name Priority Date/Time Associated Diagnosis Comments LIPID PANEL Routine 2024 10:41 AM EDT Elevated glucose from Last 3 Months or Most Recently Relevant to Health Maintenance Results * Lipid panel (2024 10:41 AM EDT) HDL 45 mg/dL [facility] Comment: Interpretation <40 mg/dL: Low HDL cholesterol (major risk factor for CHD) Greater than or equal to 60 mg/dL: High HDL cholesterol ( negative risk factor for CHD) HDL - cholesterol is affected by a number of factors, e.g. smoking, excerise, hormones, sex and age. CHOLESTEROL 185 0 - 240 mg/dL [facility] TRIGLYCERIDES 77 30 - 160 mg/dL [facility] LDL 125 50 - 129 mg/dL [facility] Comment: LDL levels in terms of risk for coronary heart disease: <100 mg/dL: Optimal 100-129 mg/dL: Near or above optimal 130-159 mg/dL: Borderline high 160-189 mg/dL: High >190 mg/dL: Very High CARDIAC RISK RATIO 4.1 3.4 - 5.0 C [facility] Blood 2024 10:4 1 AM EDT 2024 10:46 AM EDT us Alejandro HERNANDEZ LAB BLOOD BKR ORDERABLES Final Result Performing Organization Address City/State/[facility] Co de Phone Number [facility] [address] [place] [address] from Last 3 Months or Most Recently Relevant to Health Maintenance Insurance [employer] OUT OF STATE PPO BLUE CROSS OUT OF STATE PPO BLUE CROSS OUT OF STATE PPO BLUE CROSS OUT OF STATE PPO [facility] OUT OF STATE PPO Care Teams Children'S Program Coordinator Relationship Specialty Start Date End Date Alejandro Parks PA [address] [place] [id number] PCP - General Physician Refurbish Technician 07/26/22 Additional Source Comments The information contained in this document represents components of the legal health record. It is not the complete legal health record.[facility]
--- OUTSIDE RECORDS SUMMARY | 2025-02-11 18:05 | XMS_ITS | Clinical Summary ---
Author Organization [facility] Address [facility] [place] [address] Care Team Providers Care Laboratory Equipment Cleaner Name Role Phone None Primary Care Provider [...] - Influenza standard series) 11/08/2024 Care Teams Laboratory Equipment Cleaner Relationship Specialty Start Date End Date None None PCP - General 10/22/17
== END 2025-02-11 14:44 | disposition home or self-care (01) ==
LOC: HO.HPS 13:52
PROVIDERS: PCP Physician Assistant; Visit Provider Hospitalist
DX: R05.3 Chronic cough (principal); T78.40XA Allergy, unspecified, initial encounter; J30.9 Allergic rhinitis, unspecified; J45.40 Moderate persistent asthma, uncomplicated; G47.33 Obstructive sleep apnea (adult) (pediatric); R93.89 Abnormal findings on diagnostic imaging of other specified body structures
CPT/HCPCS: 99214